=== PATIENT | female | born 1945 | race Caucasian/White ===

== ENCOUNTER → 2016-06-16 | Outpatient (CLI) | payer MEDICARE ==
[2016-06-16 09:42] VITALS: BP 133/80; PULSE 53; RESP 16; TEMP 97; BMI 28.6
[2016-06-16 11:19] LABS: CH 31.6; HCT 43.6 % (34.0-46.0); HDW 2.24; HGB 14.4 gm/dL (11.4-16.0); MCH 31.7 pg (25.0-35.0); MCHC 32.9 g/dL (31.0-37.0); MCV 96.2 fL (80.0-100.0); Mean Platelet Volume 8.5; RBC 4.53 m/uL (3.80-5.40); RDW 13.6 % (11.5-15.5); WBC 5.1 k/uL (3.8-10.6)
[2016-06-16 11:23] LABS: Partial Thromboplastin Time 24.9 sec (22.0-30.0); Prothrombin Time 10.6 sec (9.0-12.0)
[2016-06-16 11:40] LABS: ALT 29 U/L (9-52); AST 24 U/L (14-36); Alkaline Phosphatase 92 U/L (38-126); Anion Gap 10 mmol/L; Blood Urea Nitrogen 24 mg/dL (7-17); Calcium 9.4 mg/dL (8.4-10.2); Carbon Dioxide 25 mmol/L (22-30); Chloride 106 mmol/L (98-107); Cholesterol 158 mg/dL (<200); Glucose 103 mg/dL (74-99); HDL Cholesterol 42 mg/dL (40-60); Iron 83 ug/dL (37-170); Magnesium 2.1 mg/dL (1.6-2.3); Non-African American GFR(MDRD) >60 (>60 ml/min/1.73 sqM); Phosphorous 4.1 mg/dL (2.5-4.5); Potassium 4.7 mmol/L (3.5-5.1); Sodium 141 mmol/L (137-145); Total Bilirubin 0.6 mg/dL (0.2-1.3); Total Protein 6.7 g/dL (6.3-8.2); Triglycerides 130 mg/dL (<150)
[2016-06-16 11:53] LABS: Prealbumin 20 mg/dL (18-36); Total Iron Binding Capacity 295 ug/dL (265-497)
[2016-06-16 12:47] LABS: Vitamin B12 346 pg/mL
[2016-06-16 13:19] LABS: Hemoglobin A1C 5.9 % (4.2-6.1)
[2016-06-22 12:46] LABS: Selenium 124 mcg/L (63-160)
--- NOTE | 2016-07-22 09:50 | P.PN ---
Progress Note - Text DATE OF SERVICE: 06/16/2016 CHIEF COMPLAINT: Follow-up gastric bypass. HISTORY OF PRESENT ILLNESS: Melanie Whitney is a 71-year-old female who is status post Jorge-en-Y gastric bypass on 11/27/2015. She is over 6 months out. She is "feeling great". Her main concern includes moderate skin along the bilateral arms. She has concern includes skin along the abdomen. Otherwise, no further complaints. No reports of troubles with sleep apnea. She is no longer on any medication for diabetes. Osteoarthritis is moderately improved. No reports of dumping syndrome. No reports of dysphagia. PAST MEDICAL HISTORY: 1. Breast cancer. 2. Hypothyroidism. 3. Depression. 4. Vitamin D deficiency. 5. Asthma. 6. Anxiety. 7. Urinary retention. 8. History of gastroesophageal reflux disease. 9. Diabetes type 2. 10. Seizure disorder. 11. History of TIA. 12. Prior history of DVT. 13. Reports hearing disorder. 14. Hyperlipidemia. 15. Memory impairment. 16. Osteoarthritis. 17. Vascular disorder. 18. Gastric ulcers. 19. Diverticulitis. PAST SURGICAL HISTORY: 1. Right breast cancer with resultant mastectomy. 2. Right knee replacement. 3. Right carpal tunnel release. 4. Status post Jorge-en-Y gastric bypass. 5. Upper endoscopy. MEDICATIONS: 1. Keppra. 2. Seroquel. 3. Synthroid. 4. Lispro. 5. Ventolin inhaler. ALLERGIES: 1. SULFA. 2. AVELOX. SOCIAL HISTORY: Past tobacco use over 10 years. FAMILY HISTORY: No colon cancer or stomach cancer. No Crohn's disease or ulcerative colitis. REVIEW OF SYSTEMS: CONSTITUTIONAL: Sharon body weight of 131 pounds for her 5 foot 1 frame. Initial weight of 250 pounds. Present weight of 151 pounds. She has lost 64 pounds in approximately 6 to 7 months. Percent excess weight loss is 76%. She has lost another 17 pounds in the last 3 months. Body mass index is reduced from 40.7 down to 28.6. BMI point reduction is 12 points. She is 20 pounds overweight. ENDOCRINE: Resolution of diabetes, type 2. History of thyroid disorder. MUSCULOSKELETAL: Improvement and resolution osteoarthritis of the knees including hips. GASTROINTESTINAL: No reports of dumping syndrome. No reports of chronic diarrhea. HEENT: Troubles with hearing. No reports of active dysphagia. RESPIRATORY: Denies any active sleep apnea. No reports of pneumonia. CARDIOVASCULAR: No reports of active chest pain or heart attack. NEUROLOGICAL: Prior history of stroke. Memory impairment. PSYCH: History of bipolar disorder. No recent psychosis. HEMATOLOGIC: Prior history of DVTs. PHYSICAL EXAM: VITAL SIGNS: 97.0, 53, 16, 133/80, 5 foot 1, 151 pounds. Body mass index 28.6. ABDOMEN: Soft, nontender, nondistended. No large palpable incisional hernias. MUSCULOSKELETAL: Moderate skin elastosis of the bilateral upper arms. GENERAL: Well-developed female in no acute distress. HEENT: No sclerae icterus. Extraocular movements grossly intact. Moist buccal mucosa. NECK: Supple without lymphadenopathy. CHEST: Nonlabored respirations equal bilateral excursions. CARDIOVASCULAR: Regular rate and rhythm. NEUROLOGIC: No focal or lateralizing signs. PSYCH: Alert and oriented to person, place and time. ASSESSMENT: 1. Morbid obesity due to excess calories. 2. Status post Jorge-en-Y gastric bypass. 3. Body mass index reduced from 40.7 down to 28.6. 4. Skin elastosis bilateral upper arms. 5. Panniculitis. 6. Diabetes type 2, resolved. 7. Sleep apnea, resolved. 8. Osteoarthritis lower back, resolved. 9. Osteoarthritis of bilateral knees, resolved. 10. Osteoarthritis of bilateral hips, resolved. 11. Hypothyroidism. 12. Asthma. 13. Bipolar disorder. 14. History of breast cancer in remission. 15. Family history of Reynolds's esophagus. 16. Glucose impairment. PLAN: 1. Recommend bariatric metabolic panel as she is more than 6 months out. 2. She reports panniculitis along the abdomen and Nystatin powder is written on her behalf. 3. She did discuss troubles with her skin of the upper arms and may benefit from brachioplasty. 4. She will continue with the goal protein intake of over 60 grams daily as she is doing extremely well. 5. Recommend follow-up in approximately 3 months; otherwise her 9 month postop visit. ADDENDUM: Bariatric metabolic panel was reviewed with BUN elevated at 24. Glucose at 103. Hemoglobin A1c improved to 5.9%.
== END | disposition home or self-care (01) ==
LOC: BARWHC3 09:13
PROVIDERS: ATTEND Surgery Plastic and Reconstructive Surgery
DX: Z48.815 Encounter for surgical aftercare following surgery on the digestive system (principal); E66.01 Morbid (severe) obesity due to excess calories; E21.1 Secondary hyperparathyroidism, not elsewhere classified; E89.1 Postprocedural hypoinsulinemia; D50.8 Other iron deficiency anemias; K90.9 Intestinal malabsorption, unspecified; E55.9 Vitamin D deficiency, unspecified; L98.8 Other specified disorders of the skin and subcutaneous tissue; M79.3 Panniculitis, unspecified; K74.1 Hepatic sclerosis; N19 Unspecified kidney failure; K50.90 Crohn's disease, unspecified, without complications; Z71.3 Dietary counseling and surveillance; Z98.84 Bariatric surgery status; Z68.28 Body mass index [BMI] 28.0-28.9, adult; Z79.899 Other long term (current) drug therapy
CPT/HCPCS: 84255; 84134; 84425; 80061; 80053; 82607; 82728; 83036; 82525; 82746; 83540; 83550; 83735; 84100; 84443; 84590; 84630; 85027; 85610; 85730; 82306; 83970; 97803; 36415; G0463; 99211

== ENCOUNTER → 2016-11-24 | Outpatient (CLI) | payer MEDICARE ==
--- NOTE | 2016-12-05 08:32 | P.PN ---
Subjective DATE OF SERVICE: 11/24/2016 CHIEF COMPLAINT: Follow-up gastric bypass. HISTORY OF PRESENT ILLNESS: Melanie Whitney is a 71-year-old female who is status post Jorge-en-Y gastric bypass on 11/27/2015. She is 1 year out. Her main complaint includes passing out. This started 2-3 months ago. She actually had fell while standing up. She does see her heart doctor. Separately, she has moved further almost 2 hours away. She reports increasing dizzy spells. Separately, no reports of dysphagia or abdominal pain. Her ideal body weight is 131 pounds for her 5 foot 1 frame. Initial weight of 250 pounds. Present weight of 136 pounds. She has lost 114 pounds in 1 year. Percent excess weight loss is 96%. She has lost another 16 pounds in 5 months. Body mass index is reduced from 47.3 down to 25.7. She is 5 pounds overweight. PAST MEDICAL HISTORY: 1. Breast cancer. 2. Hypothyroidism. 3. Depression. 4. Vitamin D deficiency. 5. Asthma. 6. Anxiety. 7. Urinary retention. 8. History of gastroesophageal reflux disease. 9. Diabetes type 2. 10. Seizure disorder. 11. History of TIA. 12. Prior history of DVT. 13. Reports hearing disorder. 14. Hyperlipidemia. 15. Memory impairment. 16. Osteoarthritis. 17. Vascular disorder. 18. Gastric ulcers. 19. Diverticulitis. PAST SURGICAL HISTORY: 1. Right breast cancer with resultant mastectomy. 2. Right knee replacement. 3. Right carpal tunnel release. 4. Status post Jorge-en-Y gastric bypass. 5. Upper endoscopy. MEDICATIONS: 1. Keppra. 2. Seroquel. 3. Synthroid. 4. Lispro. 5. Ventolin inhaler. ALLERGIES: 1. SULFA. 2. AVELOX. SOCIAL HISTORY: Past tobacco use over 10 years. FAMILY HISTORY: No colon cancer or stomach cancer. No Crohn's disease or ulcerative colitis. REVIEW OF SYSTEMS: CONSTITUTIONAL: Her ideal body weight is 131 pounds for her 5 foot 1 frame. Initial weight of 250 pounds. Present weight of 136 pounds. She has lost 114 pounds in 1 year. Percent excess weight loss is 96%. She has lost another 16 pounds in 5 months. Body mass index is reduced from 47.3 down to 25.7. She is 5 pounds overweight. ENDOCRINE: Resolution of diabetes, type 2. History of thyroid disorder. MUSCULOSKELETAL: Improvement and resolution osteoarthritis of the knees including hips. GASTROINTESTINAL: No reports of dumping syndrome. No reports of chronic diarrhea. HEENT: Troubles with hearing. No reports of active dysphagia. RESPIRATORY: Denies any active sleep apnea. No reports of pneumonia. CARDIOVASCULAR: No reports of active chest pain or heart attack. NEUROLOGICAL: Prior history of stroke. Memory impairment. PSYCH: History of bipolar disorder. No recent psychosis. HEMATOLOGIC: Prior history of DVTs. PHYSICAL EXAM: VITAL SIGNS: 5 foot 1, 136 pounds. Body mass index 25.7. Vital Signs 11/24/16 12:20 Temperature 98 F Pulse Rate 57 L Blood Pressure 102/71 SKIN: Well perfused. Good skin turgor. ABDOMEN: Soft, nontender, nondistended. No large palpable incisional hernias. MUSCULOSKELETAL: Moderate skin elastosis of the bilateral upper arms. No clubbing, cyanosis, or edema. GENERAL: Well-developed female in no acute distress. HEENT: No sclerae icterus. Extraocular movements grossly intact. Moist buccal mucosa. NECK: Supple without lymphadenopathy. CHEST: Nonlabored respirations equal bilateral excursions. CARDIOVASCULAR: Regular rate and rhythm. 2+ radial pulses. NEUROLOGIC: No focal or lateralizing signs. Cranial nerves II-12 grossly intact. PSYCH: Alert and oriented to person, place and time. LABS: Reviewed. MCV elevated 11.5. Vitamin levels within normal limits. ASSESSMENT: 1. Morbid obesity due to excess calories. 2. Status post Jorge-en-Y gastric bypass. 3. Body mass index reduced from 47.3 down to 25.7. 4. Skin elastosis bilateral upper arms. 5. Panniculitis. 6. Diabetes type 2, resolved. 7. Sleep apnea, resolved. 8. Osteoarthritis lower back, resolved. 9. Osteoarthritis of bilateral knees, resolved. 10. Osteoarthritis of bilateral hips, resolved. 11. Hypothyroidism. 12. Asthma. 13. Bipolar disorder. 14. History of breast cancer in remission. 15. Family history of Reynolds's esophagus. 16. Glucose impairment. 17. Dizziness with vertigo. 18. Previous history of TIA and stroke. PLAN: 1. She has obtained her bariatric metabolic panel. 2. For her dizziness, she reports avoiding salt. Recommend adding salt to address orthostatic hypotension. 3. Separately, her balance problem may also be indicative of arterial insufficiency of the vertebral artery. Recommend carotid studies. 3. Also recommend evaluation with the neurologist with her history of balance and vertigo with dizziness. 4. She has done extremely well with her weight loss achieving over 80% excess weight loss. Recommended follow-up the bariatric center at least yearly.
== END | disposition home or self-care (01) ==
CPT/HCPCS: 99211

== ENCOUNTER → 2016-11-24 | Outpatient (CLI) | payer MEDICARE ==
--- NOTE | 2016-11-24 12:57 | US ---
EXAMINATION TYPE: US carotid duplex BILAT DATE OF EXAM: 11/24/2016 COMPARISON: NONE CLINICAL HISTORY: Transient cerebral ischemic attack, [id number]. Dizziness, TIA, Bruit EXAM MEASUREMENTS: RIGHT: Peak Systolic Velocity (PSV) cm/sec ----- Right CCA: 85.0 ----- Right ICA: 87.7 ----- Right ECA: 52.9 ICA/CCA ratio: 1.0 RIGHT: End Diastole cm/sec ----- Right CCA: 20.2 ----- Right ICA: 22.7 ----- Right ECA: 4.9 LEFT: Peak Systolic Velocity (PSV) cm/sec ----- Left CCA: 81.7 ----- Left ICA: 73.0 ----- Left ECA: 123.8 ICA/CCA ratio: 0.9 LEFT: End Diastole cm/sec ----- Left CCA: 19.7 ----- Left ICA: 27.6 ----- Left ECA: 17.1 VERTEBRALS (direction of flow): Right Vertebral: Antegrade Left Vertebral: Antegrade Rhythm: Normal No increased velocities. No evidence of significant stenosis. Tortuous vessels. IMPRESSION: No evidence of hemodynamically significant stenosis within either carotid arterial syste m.
[2016-11-24 13:34] LABS: Partial Thromboplastin Time 24.7 sec (22.0-30.0); Prothrombin Time 10.3 sec (9.0-12.0)
[2016-11-24 14:08] LABS: ALT 31 U/L (9-52); AST 24 U/L (14-36); Alkaline Phosphatase 88 U/L (38-126); Anion Gap 6 mmol/L; Blood Urea Nitrogen 21 mg/dL (7-17); Calcium 9.6 mg/dL (8.4-10.2); Carbon Dioxide 28 mmol/L (22-30); Chloride 108 mmol/L (98-107); Cholesterol 172 mg/dL (<200); Glucose 92 mg/dL (74-99); HDL Cholesterol 48 mg/dL (40-60); Magnesium 2.4 mg/dL (1.6-2.3); Non-African American GFR(MDRD) >60 (>60 ml/min/1.73 sqM); Phosphorous 4.4 mg/dL (2.5-4.5); Potassium 4.9 mmol/L (3.5-5.1); Sodium 142 mmol/L (137-145); Total Bilirubin 0.5 mg/dL (0.2-1.3); Total Protein 6.3 g/dL (6.3-8.2)
[2016-11-24 14:56] LABS: Vitamin B12 291 pg/mL
[2016-11-24 19:09] LABS: Iron 49 ug/dL (50-170); Iron Saturation 19.68 (12.00-45.00); Total Iron Binding Capacity 249 ug/dL (228-460)
[2016-11-24 20:45] LABS: Hemoglobin A1C 5.5 % (4.2-6.1)
[2016-11-24 23:30] LABS: CH 32.3; HCT 40.2 % (34.0-46.0); HDW 2.11; HGB 12.9 gm/dL (11.4-16.0); MCH 32.6 pg (25.0-35.0); MCHC 32.2 g/dL (31.0-37.0); MCV 101.5 fL (80.0-100.0); Macrocytosis Slight; Mean Platelet Volume 9.8; RBC 3.96 m/uL (3.80-5.40); RDW 13.5 % (11.5-15.5); WBC 5.4 k/uL (3.8-10.6)
== END | disposition home or self-care (01) ==
LOC: RADUSWWP 12:09
PROVIDERS: ATTEND Surgery Plastic and Reconstructive Surgery
DX: R09.89 Other specified symptoms and signs involving the circulatory and respiratory systems (principal); E66.01 Morbid (severe) obesity due to excess calories; E21.1 Secondary hyperparathyroidism, not elsewhere classified; E89.1 Postprocedural hypoinsulinemia; D50.8 Other iron deficiency anemias; K90.89 Other intestinal malabsorption; E55.9 Vitamin D deficiency, unspecified; K76.9 Liver disease, unspecified; N19 Unspecified kidney failure; K50.90 Crohn's disease, unspecified, without complications
CPT/HCPCS: 80053; 80061; 82306; 82525; 82607; 82728; 82746; 83036; 83540; 83550; 83735; 83970; 84100; 84134; 84255; 84425; 84443; 84590; 84630; 85027; 85610; 85730; 93880